=== PATIENT | female | born 1950 | race Caucasian/White ===

== ENCOUNTER 2017-08-17 13:24 | Observation (INO) | payer MEDICARE ==
[~2017-08-17] VITALS: Ht 167.6 cm; Wt 83.7 kg
[~2017-08-17 13:24] MED LIST: AMLO5TAB2 PO; CARV6.25 PO; ERGO500014 PO; FLUO40CA49 PO; HYDR12.530 PO; LISI40TA4 PO; METF500T6 PO; NITR0.4T SL; OMEP20CA10 PO; PRED20TA3 PO; PREN1TAB80 PO
[2017-08-17 15:09] LABS: BASOPHILS % (AUTO) 0.6 % (0.0-5.0); EOSINOPHILS % (AUTO) 4.7 % (0.0-8.0); LYMPHOCYTES % (AUTO) 32.3 % (21.0-51.0); MEAN CORPUSCULAR HEMOGLOBIN 31.7 pg (27.0-33.0); MEAN CORPUSCULAR VOLUME 93.1 fL (79-99); MONOCYTES % (AUTO) 9.6 % (3.0-13.0); NEUTROPHILS % (AUTO) 52.8 % (40.0-77.0); NUCLEATED RED BLOOD CELLS 0.1 % (0.0-0.19); PLATELET COUNT (AUTO) 164 K/uL (130-400); RED BLOOD CELL COUNT(AUTO) 4.18 MIL/uL (4.00-5.50); RED CELL DISTRIBUTION WIDTH 13.1 % (11.0-15.5); WHITE BLOOD COUNT (AUTO) 6.6 K/uL (4.8-10.8)
[2017-08-17 15:12] LABS: CREATININE 0.8 mg/dL (0.5-1.5); POTASSIUM 3.8 mmol/L (3.5-5.1)
[2017-08-17 15:17] LABS: ALBUMIN 3.4 g/dL (3.5-5.0); BILIRUBIN,TOTAL 0.4 mg/dL (0.2-1.0); TOTAL PROTEIN, SERUM 6.6 g/dL (6.0-8.3)
[2017-08-17] MEDS ORDERED: MECLIZINE HCL 25 MG TABLET ONE (15:34)
[2017-08-17] MEDS ORDERED: SODIUM CHLORIDE 0.9% 1000ML 1,000 ML IV ONE (18:40)
[2017-08-18] MEDS ORDERED: POTASSIUM CHLORIDE 20MEQ/100ML 100 ML IV PRN (01:15)
[2017-08-18] MEDS ORDERED: POTASSIUM CHLORIDE 10% ELIXIR 20 MEQ/15 ML UDCUP PO PRN (01:15)
[2017-08-18] MEDS ORDERED: HYDRALAZINE HCL 20 MG/ML VIAL IV PRN (01:15)
[2017-08-18] MEDS ORDERED: LIDOCAINE HCL-MPF 1% 2ML VIAL IVP PRN (01:15)
[2017-08-18] MEDS ORDERED: ONDANSETRON HCL MDV 20ML 2 MG/ML VIAL IVP PRN (01:15)
[2017-08-18] MEDS ORDERED: POTASSIUM CHLORIDE 20 MEQ ERTAB PO PRN (01:15)
[2017-08-18 06:32] LABS: HEMATOCRIT 38.3 % (36-48); MEAN CORPUSCULAR HEMOGLOBIN 31.8 pg (27.0-33.0); MEAN CORPUSCULAR HGB CONC 34.1 g/dL (32.0-36.0); MEAN CORPUSCULAR VOLUME 93.3 fL (79-99); PLATELET COUNT (AUTO) 165 K/uL (130-400); RED BLOOD CELL COUNT(AUTO) 4.11 MIL/uL (4.00-5.50); RED CELL DISTRIBUTION WIDTH 13.3 % (11.0-15.5); WHITE BLOOD COUNT (AUTO) 6.5 K/uL (4.8-10.8)
[2017-08-18 07:00] LABS: CREATINE KINASE MB 0.8 ng/mL (0.5-3.6); CREATININE 0.8 mg/dL (0.5-1.5); POTASSIUM 3.5 mmol/L (3.5-5.1); THYROID STIMULATING HORMONE 0.43 uIU/mL (0.36-3.74); TROPONIN I 0.06 ng/mL (0.00-0.06)
[2017-08-18] MEDS ORDERED: FAMOTIDINE 20MG TAB 20 MG TAB ONE (08:14)
[2017-08-18] MEDS: FAMOTIDINE 20MG TAB 20 MG TAB PO SCH ×2 (09:00→20:18)
[2017-08-18 15:45] VITALS: BP 149/83
[2017-08-18] MEDS ORDERED: ATOR10TA69 PO (16:05)
[2017-08-18] MEDS ORDERED: LEVO150 PO (16:05)
[2017-08-18] MEDS ORDERED: ASPI-1197 PO (16:05)
[2017-08-18] MEDS: METFORMIN HCL 500 MG TABLET PO SCH (17:13)
[2017-08-18 19:38] VITALS: BP_SYST 148; BP_SYST 149; BP_SYST 150; BP_DIAS 74; BP_DIAS 78
[2017-08-18] MEDS: CARVEDILOL 6.25 MG TABLET PO SCH (20:22)
[2017-08-18 23:51] VITALS: BP 127/58
[2017-08-19 04:06] VITALS: BP 134/64
[2017-08-19] MEDS ORDERED: LEVOTHYROXINE 150 MCG TABLET PO SCH (06:30)
[2017-08-19 08:00] VITALS: BP 175/79
[2017-08-19] MEDS: CARVEDILOL 6.25 MG TABLET PO SCH (09:00)
[2017-08-19] MEDS ORDERED: ATORVASTATIN CALCIUM 10 MG TABLET PO SCH (09:00)
[2017-08-19] MEDS ORDERED: PRENATAL VITAMIN RX TABLET PO SCH (09:00)
[2017-08-19] MEDS ORDERED: LISINOPRIL 40 MG TABLET PO SCH (09:00)
[2017-08-19] MEDS ORDERED: ASPIRIN 81MG TAB.CHEW PO SCH (09:00)
[2017-08-19] MEDS ORDERED: FLUOXETINE HCL 20 MG CAPSULE PO SCH (09:00)
[2017-08-19] MEDS ORDERED: PANTOPRAZOLE SODIUM 40 MG TABLET.DR PO SCH (09:00)
[2017-08-19] MEDS ORDERED: HYDROCHLOROTHIAZIDE 25 MG TABLET PO SCH (09:00)
[2017-08-19] MEDS: METFORMIN HCL 500 MG TABLET PO SCH (09:29)
[2017-08-19] MEDS: FAMOTIDINE 20MG TAB 20 MG TAB PO SCH (09:30)
[2017-08-19] MEDS ORDERED: AMLO2.5T PO (10:37)
[2017-08-19 11:19] VITALS: BP 153/68
[2017-08-19 11:20] VITALS: BP 152/71
[2017-08-19 11:21] VITALS: BP 152/74
== END 2017-08-19 13:00 | disposition home or self-care (01) ==
LOC: EDH 13:24 → EDHIP 17:14 → 4BH 08-18 15:02
PROVIDERS: ADMIT Internal Medicine; ATTEND Internal Medicine
DX: R55 Syncope and collapse (principal); R00.1 Bradycardia, unspecified; E11.9 Type 2 diabetes mellitus without complications; E03.9 Hypothyroidism, unspecified; E78.5 Hyperlipidemia, unspecified; G47.30 Sleep apnea, unspecified; I10 Essential (primary) hypertension; Z98.84 Bariatric surgery status
CPT/HCPCS: 36415 ×2; 70450; 70551; 80048; 80053; 82550; 82553; 82948 ×2; 83874; 84443; 84484 ×2; 85025; 85027; 93005 ×2; 93306; 93880; 97161; 99285; G0378 ×44; G8978; G8979; G8980; G8981; G8982; G8983; J7030

== ENCOUNTER → 2018-01-29 | Outpatient (CLI) | payer MEDICARE ==
[~2018-01-29] MED LIST changes: +AMLO2.5T3 PO; -AMLO5TAB2 PO; +ASPI-1197 PO; +ATOR10TA69 PO; -CARV6.25 PO; -ERGO500014 PO; +LEVO150 PO; +LIDOCAINE/PRILOCAINE CREAM 5GM TUBE TP ONE; +METF-444 PO; -METF500T6 PO; -NITR0.4T SL; -PRED20TA3 PO
[2018-01-29 15:38] VITALS: BP 166/99
== END | disposition home or self-care (01) ==
LOC: WHH 13:45
PROVIDERS: ATTEND Family Medicine
DX: T81.89XA Other complications of procedures, not elsewhere classified, initial encounter (principal); E11.9 Type 2 diabetes mellitus without complications; K21.9 Gastro-esophageal reflux disease without esophagitis; E78.5 Hyperlipidemia, unspecified; F32.9 Major depressive disorder, single episode, unspecified; I10 Essential (primary) hypertension; E03.9 Hypothyroidism, unspecified; G47.30 Sleep apnea, unspecified; Y83.8 Other surgical procedures as the cause of abnormal reaction of the patient, or of later complication, without mention of misadventure at the time of the procedure; Y92.89 Other specified places as the place of occurrence of the external cause
CPT/HCPCS: 11042; 82948; A6213; G0463; J3490

== ENCOUNTER 2018-02-05 13:00 | Outpatient (CLI) | payer MEDICARE ==
[~2018-02-05 13:00] MED LIST changes: -LIDOCAINE/PRILOCAINE CREAM 5GM TUBE TP ONE
[2018-02-05 15:29] VITALS: BP 138/71
== END 2018-02-05 15:36 | disposition home or self-care (01) ==
LOC: WHH 13:00
PROVIDERS: ATTEND Family Medicine
DX: T81.89XD Other complications of procedures, not elsewhere classified, subsequent encounter (principal); E11.9 Type 2 diabetes mellitus without complications; K21.9 Gastro-esophageal reflux disease without esophagitis; E78.5 Hyperlipidemia, unspecified; F32.9 Major depressive disorder, single episode, unspecified; I10 Essential (primary) hypertension; E03.9 Hypothyroidism, unspecified; G47.30 Sleep apnea, unspecified; Y83.8 Other surgical procedures as the cause of abnormal reaction of the patient, or of later complication, without mention of misadventure at the time of the procedure
CPT/HCPCS: G0463

== ENCOUNTER 2019-02-02 22:24 | Emergency (ER) | payer MEDICARE ==
[~2019-02-02 22:24] MED LIST changes: -AMLO2.5T3 PO; +AMLO2.5T4 PO; +OMEP-50 PO; -OMEP20CA10 PO
[2019-02-03] LABS: BASOPHILS % (AUTO) 0.8 % (0.0-5.0); EOSINOPHILS % (AUTO) 6.5 % (0.0-8.0); HEMATOCRIT 40.1 % (36-48); LYMPHOCYTES % (AUTO) 20.4 % (21.0-51.0); MEAN CORPUSCULAR HEMOGLOBIN 30.7 pg (27.0-33.0); MEAN CORPUSCULAR HGB CONC 33.3 g/dL (32.0-36.0); MEAN CORPUSCULAR VOLUME 92.3 fL (79-99); MONOCYTES % (AUTO) 11.1 % (3.0-13.0); NEUTROPHILS % (AUTO) 61.2 % (40.0-77.0); NUCLEATED RED BLOOD CELLS 0.1 % (0.0-0.19); PLATELET COUNT (AUTO) 190 K/uL (130-400); RED BLOOD CELL COUNT(AUTO) 4.35 MIL/uL (4.00-5.50); WHITE BLOOD COUNT (AUTO) 8.9 K/uL (4.8-10.8)
[2019-02-03 00:14] LABS: PARTIAL THROMBOPLASTIN TIME 30.3 SEC (26.3-35.5); PROTHROMBIN TIME 10.5 SEC (9.6-11.6)
[2019-02-03 00:18] LABS: ALBUMIN 3.8 g/dL (3.5-5.0); BILIRUBIN,TOTAL 0.4 mg/dL (0.2-1.0)
[2019-02-03 00:21] LABS: POTASSIUM 2.9 mmol/L (3.5-5.1)
[2019-02-03 00:23] LABS: B-TYPE NATRIURETIC PEPTIDE 31 pg/mL (0-100)
[2019-02-03] MEDS ORDERED: POTASSIUM BICARB/CIT AC 25 MEQ TABLET.EFF ONE (00:48)
== END 2019-02-03 01:25 | disposition home or self-care (01) ==
LOC: EDH 22:24
DX: I10 Essential (primary) hypertension (principal); E87.6 Hypokalemia; E11.9 Type 2 diabetes mellitus without complications; E07.9 Disorder of thyroid, unspecified; Z91.041 Radiographic dye allergy status
CPT/HCPCS: 36415; 71045; 80053; 82550; 83735; 83874; 83880; 84484; 85025; 85610; 85730; 93005

== ENCOUNTER 2024-06-12 18:02 | Observation (INO) | payer MEDICARE ==
[~2024-06-12] VITALS: Ht 167.6 cm; Wt 80.5 kg
[~2024-06-12 18:02] MED LIST changes: -LISI40TA4 PO; +LISI40TA9 PO; -OMEP-50 PO; +OMEP20CA12 PO
--- NOTE | 2024-06-12 18:26 | HMCIMG ---
Exam: NONCONTRAST CT BRAIN REASON: NUMBNESS. COMPARISON: MRI 08/17/2017 TECHNIQUE: Images are obtained from vertex to the skull base. The exam was performed without IV contrast. FINDINGS: There is normal appearing brain parenchyma. There are no focal mass lesions. There is is no evidence of intracranial hemorrhage or acute stroke. Ventricles and sulci appear normal. Posterior fossa and brainstem structures are unremarkable. Paranasal sinuses and remaining extracranial soft tissues appear normal as well. IMPRESSION: 1. Normal noncontrast CT brain. CT was performed with one or more following dose reduction techniques: automated exposure control, adjustment of the mA and kv according to patient's size, or use of a iterative reconstruction technique.
[2024-06-12 19:20] LABS: BASOPHILS # (AUTO) 0.08 K/uL (0.00-0.20); EOSINOPHILS # (AUTO) 0.37 K/uL (0.00-0.70); EOSINOPHILS % (AUTO) 4.5 % (0.0-8.0); HEMATOCRIT 35.7 % (36-48); IMMATURE GRANULOCYTE ABSOLUTE 0.01 K/uL (0-1); LYMPHOCYTES # (AUTO) 3.1 K/uL (1.0-4.8); LYMPHOCYTES % (AUTO) 37.4 % (21.0-51.0); MEAN CORPUSCULAR HEMOGLOBIN 25.7 pg (27.0-33.0); MEAN CORPUSCULAR HGB CONC 30.3 g/dL (32.0-36.0); MEAN CORPUSCULAR VOLUME 84.8 fL (79-99); MONOCYTES # (AUTO) 0.8 K/uL (0.1-1.0); MONOCYTES % (AUTO) 9.4 % (3.0-13.0); NEUTROPHILS # (AUTO) 3.9 K/uL (1.8-7.7); NEUTROPHILS % (AUTO) 47.6 % (40.0-77.0); PLATELET COUNT (AUTO) 266 K/uL (130-400); RED BLOOD CELL COUNT(AUTO) 4.21 MIL/uL (4.00-5.50); RED CELL DISTRIBUTION WIDTH 14.5 % (11.0-15.5); WHITE BLOOD COUNT (AUTO) 8.2 K/uL (4.8-10.8)
[2024-06-12 19:33] LABS: CREATININE 0.7 mg/dL (0.5-1.0); POTASSIUM 3.9 mmol/L (3.5-5.1)
--- NOTE | 2024-06-12 20:03 | NUR ---
TELE NEURO EVALUATING PATIENT
--- NOTE | 2024-06-12 20:12 | CONS ---
CONSULT NOTE: [facility] Note # Demographics Consult Type: General Neurology Patient Location: Emergency Room First Name: ALFREDO Last Name: ERASMO Date of : 1950 Age: 74 Gender: Female Facility: [facility] Time of Initial Page (Central Time): 06/12/2024, 20:02 Time of Return Call (Central Time): 06/12/2024, 20:02 # HPI Chief Complaint: - numbness History: 74yof who p/w L facial pulling and numbness. Been present for several days. Last Known Normal: - I have collected independent history specific to time last normal or last known well. We have collaborated with the provider and at this time, we have the most current timeline with the information that is available. # Scores Time of exam and NIHSS (Central Time): 06/12/2024, 20:04 Level of Consciousness 1a: [0] = Alert; keenly responsive LOC Questions 1b: [0] = Answers both questions correctly LOC Commands 1c: [0] = Performs both tasks correctly Best Gaze 2: [0] = Normal Visual 3: [0] = No visual loss Facial Palsy 4: [0] = Normal symmetrical movements Motor Arm Left 5a: [0] = No drift Motor Arm Right 5b: [0] = No drift Motor Leg Left 6a: [0] = No drift Motor Leg Right 6b: [0] = No drift Limb Ataxia 7: [0] = Absent Sensory 8: [0] = Normal Best Language 9: [0] = No aphasia Dysarthria 10: [0] = Normal Extinction and Inattention 11: [0] = No abnormality NIHSS Total: 0 # Data Head CT: - no bleed - preliminarily reviewed by me, please refer to radiology read for official reading # Assessment Impression: In patients presenting with high risk TIA or minor stroke, treatment for 21 days with dual antiplatelet therapy (aspirin and plavix) begun within 24 hours can be beneficial for early secondary stroke prevention (CHANCE 2013, POINT 2018). # Plan Thrombolytic/Intervention: NOT IV Thrombolysis or IA Intervention candidate Thrombolytic Exclusion: > 4.5 hours Intraarterial Exclusion: - clinical exam not consistent with presence of large vessel occlusion (LVO), can reconsider if LVO found on vascular imaging Labs: - lipid panel - hemoglobin A1c - CBC - basic metabolic panel - urine drug screen - troponin Imaging: (urgency: routine): - MRI Brain without contrast - MR Angiogram Neck with contrast - MR Angiogram Head without contrast Diagnostic Test: - echo with bubble study Therapy/Evaluation: - PT/OT evaluation - speech/swallow consultation Medication: - start statin with goal of LDL < 70 - aspirin 81 mg daily Other: - If patient has any neurological deterioration please call me back immediately - permissive hypertension - telemetry monitoring - LDL < 70 - I have discussed my recommendations with the referring provider - provide smoking cessation resources and counseling to patient Additional Recommendations: - Avoid dehydration and relative hypotension - Risk factor modification, including smoking cessation and alcohol moderation if appropriate - Monitor glucose and correct as needed - If cryptogenic non-lacunar stroke on MRI, obtain outpatient cardiac monitoring for a fib # Logistics Attestation of consult completion: The patient is located at: [facility]. Facility staff participated in the visit. I performed this telemedicine visit from my offsite office utilizing interactive 2 way audio and visual telecommunication technology. Total time spent in telemedicine encounter: I spent 27 minutes reviewing clinical data and/or imaging, obtaining history, examining the patient, communicating with the onsite care team, and in preparation of this report. # Demographics First Name: ALFREDO Last Name: MICKYHUBER Facility: [facility] ZEE EAST MD Jun 12, 2024 20:12
--- NOTE | 2024-06-12 20:53 | EKG ---
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
--- NOTE | 2024-06-12 21:11 | ERN ---
General Chief Complaint: Numbness Stated Complaint: NUMBNESS TO LF SIDE OF FACE Time Seen by MD: 19:11 History of Present Illness Initial Comments 74-year-old female who presents for left lower face heaviness and facial pulling and numbness it has been present for over 48 hours now. No other symptoms. Allergies: Coded Allergies: Iodine and Iodide Containing Produc (Unverified Allergy, Unknown, 02/03/19) iodine (Verified Allergy, Unknown, 06/08/15) Home Meds Active Scripts Amlodipine Besylate (Amlodipine Besylate) 2.5 Mg Tablet, 2.5 MG PO DAILY, #30 TAB Prov:WILL FISCHER MD 08/19/17 Reported Medications Atorvastatin Calcium (Atorvastatin Calcium) 10 Mg Tablet, 10 MG PO DAILY, TAB 08/18/17 Levothyroxine Sodium (Synthroid 150 Mcg Tab) 150 Mcg Tab, 150 MCG PO DAILY, TAB 08/18/17 Aspirin (Aspirin) 81 Mg Tab.chew, 81 MG PO DAILY, TAB.CHEW 08/18/17 Vits W-Ca,Fe,FA(<1Mg) ( Vitamins) 1 Each Tablet, 1 EACH PO DAILY, TAB 06/08/15 Omeprazole (Omeprazole) 20 Mg Capsule.dr, 20 MG PO BID, CAP 06/08/15 Fluoxetine HCl (Fluoxetine HCl) 40 Mg Capsule, 20 MG PO DAILY, CAP 06/08/15 Metformin HCl (Metformin HCl) 500 Mg Tablet, 500 MG PO BID, TAB 06/08/15 Hydrochlorothiazide (Hydrochlorothiazide) 12.5 Mg Capsule, 25 MG PO DAILY, CAP 06/08/15 Lisinopril (Lisinopril) 40 Mg Tablet, 40 MG PO DAILY, TAB 06/08/15 Past Medical History Past Medical History: Diabetes-Type II, High Cholesterol, Hypertension Past Surgical History: Other Surgical History Other: ABD SX, BACK SX ROS Dictation CONSTITUTIONAL: No chills, no fever, no weakness, no diaphoresis, no malaise. HEAD/FACE: No signs of trauma. EENT: No eye pain, no blurred vision, no tearing, no double vision, no ear pain, no ear discharge, no nose pain, no nasal congestion, no throat pain, no throat swelling, no mouth pain. RESPIRATORY: No cough, no orthopnea, no SOB, no stridor, no wheezing. CARDIOVASCULAR: No chest pain, no edema, no palpitations, no syncope. GASTROINTESTINAL/ABDOMINAL: No abdominal pain, no constipation, no diarrhea, no nausea, no vomiting. GENITOURINARY: No abnormal discharge, no dysuria, no frequent urination, no hematuria. No complaints of pain in the genitals. MUSCULOSKELETAL: No back pain, no gout, no joint pain, no joint swelling, no muscle pain, no muscle stiffness, no neck pain. INTEGUMENTARY: No change in color, no change in hair/nails, no dryness, no lesion, no lumps, no rash. NEUROLOGICAL/PSYCH: No anxiety, not depressed, no emotional problem, no headac he, no numbness, no pre-existing deficit, no history of seizures, no tremors, no weakness. HEMATOLOGIC/LYMPHATIC: Not anemic, no history of blood clots, no apparent bleeding, no bruising, glands not swollen. All Systems Negative, Except as Noted. Physical Exam Physical Exam Dictation VITAL SIGNS: Reviewed. GENERAL APPEARANCE: Alert, oriented x3, no acute distress HEAD AND FACE: Non-traumatic. EYES: PERRL, pink conjunctivas, eyelid no trauma, anterior chamber clear. EARS: Pinnas intact and no signs of trauma or erythema. Ear canals clear and no discharge. TMs no erythema. NOSE: No discharge, no bleeding. OROPHARYNX: Mouth normal, teeth no caries, tongue pink. Pharynx clear, no erythema. Tonsils no exudates, no abscesses noted. Mucous membrane moist. NECK: Supple, non-tender, no thyromegaly, no masses, no JVD, no bruits. BREAST: Deferred. CHEST: No tenderness, no crepitus, no paradoxical movement, no retractions. LUNGS: Clear, well-ventilated, symmetric, no rales, no wheezing, no rhonchi, no stridor, good breath sounds bilaterally. HEART: Regular rate, regular rhythm, no murmur, no gallops. VASCULAR: No peripheral edema. ABDOMEN: Soft, positive bowel sounds, nondistended, no guarding, nontender, no rebound, no masses no hepatomegaly, no splenomegaly, no Blanton's sign, no hernias. RECTAL: Deferred. GENITAL: Deferred. NEUROLOGICAL: Normal speech, gross motor function intact, gross sensory function intact. MUSCULOSKELETAL: Neck nontender, full range of motion, back nontender, full range of motion. EXTREMITIES: Nontender, full range of motion. SKIN: Color pink, dry, no turgor, no rash, no lacerations, no abrasions, no contusions. LYMPHATICS: Deferred. Stroke Patient?: Ischemic Is Patient Candidate for t-PA?: No Did the Patient Receive t-PA?: No Contraindication for t-PA?: Medical Contraindication NIH STROKE SCALE: NIH STROKE SCALE Response (Comments) Value Level of Consciousness Alert 0 Ask patient month and their age Answers both correct 0 Command to open eyes, make fist and let go Obeys both correct 0 Best gaze (horizontal eye movement) Normal 0 Visual Field Testing No Visual Field Loss 0 Facial Paresis Normal / Symmetrical 0 Motor Function - Left Arm Normal 0 Motor Function - Right Arm Normal 0 Motor Function - Left Leg Normal 0 Motor Function - Right Leg Normal 0 Limb Ataxia No Ataxia 0 Sensory-pin prick to arms, legs, trunk and face Normal 0 Best Language (describe picture, name items and read) No Aphasia 0 Dysarthria (read several words) Normal Articulation 0 Extinction and Inattention Normal 0 Total 0 Results Laboratory and Microbiology Lab and Micro Result Laboratory Tests Test 06/12/24 19:13 06/12/24 21:17 White Blood Count 8.2 K/uL (4.8-10.8) Red Blood Count 4.21 MIL/uL (4.00-5.50) Hemoglobin 10.8 g/dL (12.0-16.0) L Hematocrit 35.7 % (36-48) L Mean Corpuscular Volume 84.8 fL (79-99) Mean Corpuscular Hemoglobin 25.7 pg (27.0-33.0) L Mean Corpuscular Hemoglobin Concent 30.3 g/dL (32.0-36.0) L Red Cell Distribution Width 14.5 % (11.0-15.5) Platelet Count 266 K/uL (130-400) Mean Platelet Volume 11.2 fL (7.5-10.5) H Immature Granulocyte % (Auto) 0.1 % (0-1) Neutrophils (%) (Auto) 47.6 % (40.0-77.0) Lymphocytes (%) (Auto) 37.4 % (21.0-51.0) Monocytes (%) (Auto) 9.4 % (3.0-13.0) Eosinophils (%) (Auto) 4.5 % (0.0-8.0) Basophils (%) (Auto) 1.0 % (0.0-5.0) Neutrophils # (Auto) 3.9 K/uL (1.8-7.7) Lymphocytes # (Auto) 3.1 K/uL (1.0-4.8) Monocytes # (Auto) 0.8 K/uL (0.1-1.0) Eosinophils # (Auto) 0.37 K/uL (0.00-0.70) Basophils # (Auto) 0.08 K/uL (0.00-0.20) Absolute Immature Granulocyte (auto 0.01 K/uL (0-1) Nucleated Red Blood Cells 0.0 % (0.0-0.19) Red Blood Cell Morphology ANISO 1+ Sodium Level 144 mmol/L (136-145) Potassium Level 3.9 mmol/L (3.5-5.1) Chloride Level 107 mmol/L (101-111) Carbon Dioxide Level 32 mmol/L (21-32) Blood Urea Nitrogen 12 mg/dL (7-18) Creatinine 0.7 mg/dL (0.5-1.0) Glomerular Filtration Rate Calc 90 mL/min (>90) Random Glucose 102 mg/dL (70-105) Total Calcium 9.8 mg/dL (8.5-10.1) Troponin I High Sensitivity 44 ng/L (4-50) Urine Color COLORLESS (YELLOW) Urine Appearance CLEAR (CLEAR) Urine pH 6.5 (5.0-8.0) Urine Specific [place] 1.008 (1.001-1.031) Urine Protein NEGATIVE mg/dL (NEGATIVE) Urine Glucose (UA) NEGATIVE mg/dL (NEGATIVE) Urine Ketones NEGATIVE mg/dL (NEGATIVE) Urine Occult Blood NEGATIVE (NEGATIVE) Urine Nitrate NEGATIVE (NEGATIVE) Urine Bilirubin NEGATIVE mg/dL (NEGATIVE) Urine Urobilinogen 0.2 mg/dL (0.2-1.0) Urine Leukocyte Esterase 75 Mimi/uL (NEGATIVE) H Urine RBC 0-1 /HPF (0-1) Urine WBC 2-5 /HPF (0-1) H Urine Squamous Epithelial Cells RARE /HPF (0-2) Urine Bacteria RARE /HPF (None Seen) Urine Opiates Screen NEGATIVE (NEGATIVE) Urine Barbiturates Screen NEGATIVE (NEGATIVE) Urine Phencyclidine Screen NEGATIVE (NEGATIVE) Urine Amphetamines Screen NEGATIVE (NEGATIVE) Urine Benzodiazepines Screen NEGATIVE (NEGATIVE) Urine Cocaine Screen NEGATIVE (NEGATIVE) Urine Marijuana (THC) Screen NEGATIVE (NEGATIVE) MDM CC: Left facial heaviness Historian: Patient Comorbidities: Hypertension, diabetes, gastric bypass Limitations by social determinants of health: None Differential diagnosis: Stroke, Valladares's palsy, musculoskeletal disorder, other. Vital signs: Mild hypertension 164/83, otherwise stable, remained stable in the ER Initial NIHSS of 0. Currently asymptomatic. Symptoms have been waxing and waning for 48 hours or so now. Patient was not a candidate for TNK because she was outside of the treatment window greater than 4.5 hours. Very low suspicion for large vessel occlusion due to the normal NIH stroke scale. Labs: No leukocytosis. Normocytic anemia hemoglobin of 10.8 chemistries unremarkable. Troponin is normal. EKG: Sinus rhythm rate of 72 normal axis good R-wave progression intervals are stable no STEMI. Independently interpreted by me. CT head independently interpreted by me: No acute bleeding hemorrhagic stroke. I consulted tele neurology. Recommends a stroke workup. I consulted the hospitalist, recommends admission for stroke workup. Patient given an aspirin here in the ER. ED Course Orders Procedure Category Date Status Time Ct Head/Brain W/O CT 06/12/24 Resulted Contrast 18:06 Cbc With Differential LAB 06/12/24 Complete 18:06 Basic Metabolic Panel LAB 06/12/24 Complete 18:06 Troponin I High LAB 06/12/24 Complete Sensitivity 18:06 12 Lead Ekg Tracing- EKG 06/12/24 Complete Technical 18:06 Urinalysis Profile LAB 06/12/24 Complete 18:06 [place] Prov. Neuro CONPHYSVC 06/12/24 Transmitted Consult 20:03 Aspirin 325mg Tab PHA 06/12/24 Complete (Aspirin 325mg Tab) 21:30 Culture Urine EVELYN 06/12/24 In Process 21:38 Current Medications Medications (Trade) Dose Ordered Sig/Angélica Route PRN Reason Start Time Stop Time Status Last Admin Dose Admin Aspirin (Aspirin 325mg Tab) 325 mg ONCE ONCE PO 06/12/24 21:30 06/12/24 21:31 DC 06/12/24 21:30 Vital Signs Date Time Temp Pulse Resp B/P (MAP) Pulse Ox O2 Delivery O2 Flow Rate FiO2 06/12/24 21:20 71 20 169/85 97 Room Air* 0 21 06/12/24 20:12 98.8 69 18 164/83 96 Room Air* 0 21 06/12/24 18:03 98.1 69 16 160/76 98 Room Air 0 DX & DISP Disposition: Inpatient Departure Impression: Primary Impression: Stroke-like symptom Additional Impression: Hypertension Critical Time: 30 minutes (Critical Care Procedure NoteAuthorized and Performed by: meTotal critical care time: Approximately 36 minutesDue to a high probability of clinically significant, life threatening deterioration, the patient required my highest level of preparedness to intervene emergently and I personally spent this critical care time directly and personally managing the patient. This critical care time included obtaining a history; examining the patient; pulse oximetry; ordering and review of studies; arranging urgent treatment with development of a management plan; evaluation of patient's response to treatment; frequent reassessment; and, discussions with other pr oviders.This critical care time was performed to assess and manage the high probability of imminent, life-threatening deterioration that could result in multi-organ failure. It was exclusive of separately billable procedures and treating other patients and teaching time.Please see MDM section and the rest of the note for further information on patient assessment and treatment.) Condition: Stable Referrals: SHELIA GUEVARA MD (PCP) GLENNA VARELA DO Jun 12, 2024 21:11
[2024-06-12] MEDS: ASPIRIN 325MG TAB PO ONE (21:30)
[2024-06-12 21:31] LABS: APPEARANCE,URINE CLEAR (CLEAR); BILIRUBIN,URINE NEGATIVE (NEGATIVE); COLOR,URINE COLORLESS (YELLOW); GLUCOSE, URINE (UA) NEGATIVE (NEGATIVE); KETONES,URINE NEGATIVE (NEGATIVE); LEUKOCYTE ESTERASE ,URINE 75 Leu/uL (NEGATIVE); NITRATE,URINE NEGATIVE (NEGATIVE); OCCULT BLOOD,URINE NEGATIVE (NEGATIVE); PH,URINE 6.5 (5.0-8.0); PROTEIN,URINE NEGATIVE (NEGATIVE); UROBILINOGEN,URINE 0.2 mg/dL (0.2-1.0)
[2024-06-12 21:38] LABS: ADD UA MICROSCOPIC YES
[2024-06-12 21:41] LABS: BACTERIA,URINE RARE /HPF (None Seen); MUCUS,URINE RARE LPF (None Seen); RBC,URINE 0-1 /HPF (0-1); SQUAMOUS EPITHELIAL CELL,UR RARE /HPF (0-2)
--- NOTE | 2024-06-12 23:43 | HP ---
[facility] Date of Service: Jun 12, 2024 Time of Service: 23:31 PCP : Gigi Mcdonald HISTORY OF PRESENT ILLNESS: This is a 74-year-old female with past medical history of diabetes, hypertension, hypothyroidism, depression and hyperlipidemia who presents to the ED for complaints of left lower face heaviness ,numbness and pulling to left lower face which has been on and off and started 3 days ago however today is occurs more frequent and last episode noted was around 4pm today so she decided to come to the ED for evaluation.Patient states usually it occurs once daily since 3 days ago and today is occurs 3 x and she is more worried and patient denies any other associated symptoms.Patient was evaluated be a tele neurologist while in the ER with an NIHS score of 0 and an impression for a high risk of TIA and patient was given Aspirin 325 mg po in the ER. Seen and examined patient in the ER awake,alert and coherent,appears comfortable.Patient states she is not having the symptoms and last episode was at 4pm she said.Patient moves all extremities .Patient denies any recent dental procedures,visual disturbance,dizziness,headache ,weakness,tingling sensation ,LOC change ,cough,chest pain,palpitation,fever and shortness of breath. Latest vital signs temperature 98.8, heart rate 71, blood pressure 169/85 saturation 97% on room air. Labs hemoglobin 10.8, hematocrit 35.7 platelet count 266. Chemistries normal. CT head result revealed normal noncontrast CT brain. While in the ER patient received aspirin 325 mg p.o. we will admit patient for further medical management. REVIEW OF SYSTEMS CONSTITUTIONAL: Denies fevers, chills, or night sweats. No unintentional weight loss reported. NEUROLOGICAL: Denies headache, amaurosis fugax, motor weakness, sensory deficit, vertigo/spinning sensation, gait abnormalities, or tremors. ENT: No hearing loss, otalgia, otorrhea, rhinitis, rhinorrhea, hoarseness, or sore throat. CARDIOVASCULAR: Denies any exertional angina, dyspnea on exertion, orthopnea, paroxysmal nocturnal dyspnea, palpitations, life-threatening arrhythmias, claudication. PULMONARY: Denies any shortness of breath, cough, phlegm/sputum, hemoptysis, pleuritic chest pain. SLEEP: Denies morning headaches, daytime somnolence or napping. Denies difficulty falling asleep, staying asleep, waking from sleep. Denies knowledge of snoring. GASTROINTESTINAL: Denies any type of dysphagia to either liquids or solids. Denies nausea, vomiting, pyrosis, early satiety, abdominal pain, diarrhea, constipation, or changes in stool consistency or caliber. Denies coffee-ground emesis, hematemesis, hematochezia, or melanotic stools. GENITOURINARY: Denies frequency, urgency, nocturia, hematuria or incontinence (Storage/Irritative symptoms.) Low urinary stream, straining to void, urinary intermittency or hesitancy, splitting of the voiding stream, terminal dribbling. ENDOCRINOLOGIC: Denies polyuria, polydipsia, polyphagia or heat/cold intolerances. HEMATOLOGIC: Denies thrombophilia/previous clots, or coagulopathy/bleeding disorders. ONCOLOGIC: Denies personal history of malignancy. DERMATOLOGIC: Denies rashes or pruritus. PSYCHIATRIC: Denies any suicidal or homicidal ideation. Denies hallucinations. PAST MEDICAL HISTORY: [ diabetes, hypertension, hypothyroidism, depression and hyperlipidemia ] PAST SURGICAL HISTORY: [ Abdominal surgery and back surgery ] PAST SOCIAL HISTORY: [ Patient lives with . Patient denies cigarette smoking and recreational drug use. Admits to drinking six beers per day ] FAMILY HISTORY: [ Hypertension and diabetes ] Coded Allergies: Iodine and Iodide Containing Produc (Unverified Allergy, Unknown, 02/03/19) iodine (Verified Allergy, Unknown, 06/08/15) PHYSICAL EXAM GENERAL APPEARANCE: The patient is awake, alert, and oriented, in no acute cardiopulmonary distress. NEUROLOGICAL: Cranial nerves II-XII grossly intact. Motor is 5/5 in bilateral upper and lower extremities proximal to distal. No sensory deficits. HEENT: Face is symmetric. Pupils are equal and reactive. Extraocular movements are intact. NECK: Supple. No JVD. No thyromegaly. No submental, submandibular, pre-/postauricular, occipital or supraclavicular lymphadenopathy. CHEST: Normal chest expansion. No Telemetry. LUNGS: Absence of any rales, rhonchi or any wheezing. CARDIOVASCULAR: Regular. S1 and S2 normal. No appreciable rubs, murmurs or gallops. ABDOMEN: Soft, nontender, and nondistended. There is no rebound, voluntary guarding, or rigidity. : Deferred. No Mantilla. EXTREMITIES: Non-edematous and not cyanotic. No clubbing. Good capillary refill. SKIN: No skin breakdown. Vital Sign (Last 24 Hours) 06/12/24 06/12/24 20:12 21:20 Temp 98.8 Pulse 71 Resp 20 B/P (MAP) 169/85 Pulse Ox 97 O2 Delivery Room Air* O2 Flow Rate 0 FiO2 21 LABS: Laboratory: Test 06/12/24 21:17 06/12/24 19:13 Range/Units Urine Color COLORLESS YELLOW Urine Appearance CLEAR CLEAR Urine pH 6.5 5.0-8.0 Urine Specific Hiko 1.008 1.001-1.031 Urine Protein NEGATIVE NEGATIVE mg/dL Urine Glucose (UA) NEGATIVE NEGATIVE mg/dL Urine Ketones NEGATIVE NEGATIVE mg/dL Urine Occult Blood NEGATIVE NEGATIVE Urine Nitrate NEGATIVE NEGATIVE Urine Bilirubin NEGATIVE NEGATIVE mg/dL Urine Urobilinogen 0.2 0.2-1.0 mg/dL Urine Leukocyte Esterase 75 H NEGATIVE Mimi/uL Urine RBC 0-1 0-1 /HPF Urine WBC 2-5 H 0-1 /HPF Urine Squamous Epithelial Cells RARE 0-2 /HPF Urine Bacteria RARE None Seen /HPF White Blood Count 8.2 4.8-10.8 K/uL Red Blood Count 4.21 4.00-5.50 MIL/uL Hemoglobin 10.8 L 12.0-16.0 g/dL Hematocrit 35.7 L 36-48 % Mean Corpuscular Volume 84.8 79-99 fL Mean Corpuscular Hemoglobin 25.7 L 27.0-33.0 pg Mean Corpuscular Hemoglobin Concent 30.3 L 32.0-36.0 g/dL Red Cell Distribution Width 14.5 11.0-15.5 % Platelet Count 266 130-400 K/uL Mean Platelet Volume 11.2 H 7.5-10.5 fL Immature Granulocyte % (Auto) 0.1 0-1 % Neutrophils (%) (Auto) 47.6 40.0-77.0 % Lymphocytes (%) (Auto) 37.4 21.0-51.0 % Monocytes (%) (Auto) 9.4 3.0-13.0 % Eosinophils (%) (Auto) 4.5 0.0-8.0 % Basophils (%) (Auto) 1.0 0.0-5.0 % Neutrophils # (Auto) 3.9 1.8-7.7 K/uL Lymphocytes # (Auto) 3.1 1.0-4.8 K/uL Monocytes # (Auto) 0.8 0.1-1.0 K/uL Eosinophils # (Auto) 0.37 0.00-0.70 K/uL Basophils # (Auto) 0.08 0.00-0.20 K/uL Absolute Immature Granulocyte (auto 0.01 0-1 K/uL Nucleated Red Blood Cells 0.0 0.0-0.19 % Red Blood Cell Morphology ANISO 1+ Sodium Level 144 136-145 mmol/L Potassium Level 3.9 3.5-5.1 mmol/L Chloride Level 107 101-111 mmol/L Carbon Dioxide Level 32 21-32 mmol/L Blood Urea Nitrogen 12 7-18 mg/dL Creatinine 0.7 0.5-1.0 mg/dL Glomerular Filtration Rate Calc 90 >90 mL/min Random Glucose 102 70-105 mg/dL Total Calcium 9.8 8.5-10.1 mg/dL Troponin I High Sensitivity 44 4-50 ng/L DIAGNOSTICS / RADIOLOGY: [ ] ASSESSMENT: Suspected transient ischemic attack POA Uncontrolled hypertension POA Alcohol dependence POA Acute anemia POA Hyperlipidemia POA Diabetes POA Hypothyroidism POA Depression POA PLAN: We will admit patient in medical telemetry We will start on clear liquid diet We will start aspirin 81 mg p.o. daily We will start on Famotidine 20 mg p.o. bid for GI prophylaxis We will replace electrolytes as needed per protocol We will start on insulin sliding scale AC & HS with hypoglycemia protocol We will add prn medication for fever,pain,cough ,nausea and vomiting We will reconcile home meds once medlist available We will request PT eval and treat We will request case management service Bedside swallow eval Counseled on alcohol use cessation NIHS Q shift and p.r.n. We will observe permissive hypertension for now Neuro check every 4 hours per nursing Monitor for signs of alcohol withdrawals and notify care provider We will request labs in am We will obtain MRI brain without contrast Further orders to follow depending on above results Case discussed with attending physician and came up with above treatment and plan of care. ADVANCED CARE PLANNING 1. Which of the following were discussed? Hospice Care - No Therapeutic options - Yes Advance Directives - No Other discussions - 2. Discussed with who? Patient and Rajeev Fambo 3. Voluntary nature of this service was explained to the patient? Yes 4. Amount of time spent - __20 5. Reviewed by Physician? (if this service was performed by NPP) Yes Patient seen and examined by me. Agree with note by DIRECTOR OF MATERIALS SEE ADDITIONAL ORDERS PER CHART DISCUSSED WITH NURSING STAFF JUNIOR MORRIS [employer]ODUCTION HAND Jun 12, 2024 23:42
[2024-06-13] MEDS ORDERED: ondanSETRON 4MG INJ IV PRN
[2024-06-13] MEDS ORDERED: PoTASSium chloRIDE 20MEQ/100ML 100 ML IV PRN
[2024-06-13] MEDS ORDERED: GLUCAGON 1MG KIT 1 MG ML IM PRN
[2024-06-13] MEDS ORDERED: MAGNESIUM 2GM PREMIX 50ML 50 ML IV PRN
[2024-06-13] MEDS ORDERED: DEXTROSE 50%-WATER 50 ML DISP.SYRIN IV PRN
[2024-06-13] MEDS ORDERED: acetaMINOPHEN 325 MG TAB PO PRN
[2024-06-13] MEDS ORDERED: PoTASSium chl 10% ELIXIR 20MEQ 20 MEQ/15 ML UDCUP PO PRN
[2024-06-13] MEDS ORDERED: hydrALAZine 20MG/ML VIAL IV PRN
[2024-06-13] MEDS: 0.9%NACL 1000ML 1,000 ML IV SCH (00:10)
[2024-06-13 01:13] LABS: AMPHET/METH SCREEN,URINE NEGATIVE (NEGATIVE); BARBITURATE SCREEN, URINE NEGATIVE (NEGATIVE); BENZODIAZEPINES SCREEN,URINE NEGATIVE (NEGATIVE); CANNABINOID SCREEN,URINE NEGATIVE (NEGATIVE); COCAINE SCREEN,URINE NEGATIVE (NEGATIVE); OPIATE SCREEN,URINE NEGATIVE (NEGATIVE); PHENCYCLIDINE SCREEN,URINE NEGATIVE (NEGATIVE)
[2024-06-13 01:22] LABS: HEMOGLOBIN A1C 6.6 % (4.0-6.0)
--- NOTE | 2024-06-13 01:28 | NUR ---
ASSUMED PATIENT CARE AT THIS TIME FROM AIDAN ADEN./SHAHEED
[2024-06-13 06:36] LABS: BASOPHILS # (AUTO) 0.08 K/uL (0.00-0.20); BASOPHILS % (AUTO) 1.1 % (0.0-5.0); EOSINOPHILS # (AUTO) 0.43 K/uL (0.00-0.70); EOSINOPHILS % (AUTO) 5.7 % (0.0-8.0); HEMATOCRIT 33.6 % (36-48); IMMATURE GRANULOCYTE ABSOLUTE 0.02 K/uL (0-1); LYMPHOCYTES # (AUTO) 2.8 K/uL (1.0-4.8); LYMPHOCYTES % (AUTO) 36.6 % (21.0-51.0); MEAN CORPUSCULAR HEMOGLOBIN 25.6 pg (27.0-33.0); MEAN CORPUSCULAR HGB CONC 30.4 g/dL (32.0-36.0); MEAN CORPUSCULAR VOLUME 84.2 fL (79-99); MONOCYTES # (AUTO) 0.9 K/uL (0.1-1.0); MONOCYTES % (AUTO) 11.4 % (3.0-13.0); NEUTROPHILS # (AUTO) 3.4 K/uL (1.8-7.7); NEUTROPHILS % (AUTO) 44.9 % (40.0-77.0); PLATELET COUNT (AUTO) 239 K/uL (130-400); RED BLOOD CELL COUNT(AUTO) 3.99 MIL/uL (4.00-5.50); RED CELL DISTRIBUTION WIDTH 14.5 % (11.0-15.5); WHITE BLOOD COUNT (AUTO) 7.6 K/uL (4.8-10.8)
[2024-06-13 06:59] LABS: BILIRUBIN,TOTAL 0.4 mg/dL (0.2-1.0); CREATININE 0.6 mg/dL (0.5-1.0); POTASSIUM 3.9 mmol/L (3.5-5.1); THYROID STIMULATING HORMONE 0.03 uIU/mL (0.36-3.74); TOTAL PROTEIN, SERUM 6.1 g/dL (6.0-8.3)
[2024-06-13] MEDS: INSULIN humuLIN R 100 UNIT/ML 3ML SQ SCH (07:30)
--- NOTE | 2024-06-13 07:56 | NUR ---
TROP-56 JOVAN ADEN MADE AWARE
--- NOTE | 2024-06-13 09:09 | HMCIMG ---
MR BRAIN WO CON HISTORY: TIA COMPARISON: None TECHNIQUE: MRI of the brain was performed utilizing multiple pulse sequences in axial, coronal and sagittal planes. Patient was not given contrast through intravenous route. FINDINGS: The ventricles and extraventricular CSF spaces are dilated consistent with cerebral atrophy. Nonspecific white matter changes are seen. There is no midline shift, mass effect or herniation. No subacute hemorrhage is seen. No MR evidence of acute infarct is seen in the diffusion weighted images. Cerebellar tonsils are in normal position. No evidence of mucoperiosteal thickening is seen of the visualized paranasal sinuses. No MR evidence of a mass lesion is seen in this noncontrast study. IMPRESSION: 1. No MR evidence of acute infarct is seen in the diffusion weighted images. Atrophy or white matter changes.
[2024-06-13] MEDS: ASPIRIN 81 MG EC TAB PO SCH (11:09)
[2024-06-13] MEDS: FAMOTIDINE 20MG TAB PO SCH (11:09)
--- NOTE | 2024-06-13 15:04 | HMCIMG ---
US CAROTID DUPLEX HISTORY: TIA COMPARISON: None TECHNIQUE: Duplex carotid arterial Doppler ultrasound study was performed. FINDINGS: The common, internal and external carotid arteries are visualized. The peak systolic velocities of right common carotid artery is 56 centimeters per second, right internal carotid artery is 124 centimeters per second, right external carotid artery is 68 centimeters per second, and right vertebral artery is 62 centimeters per second. Right internal carotid artery to right common carotid artery ratio is 2.2. Right vertebral artery is seen with antegrade flow. The peak systolic velocities of left common carotid artery is 71 centimeters per second, left internal carotid artery is 96 centimeters per second, left external carotid artery is 72 centimeters per second, and left vertebral artery is 61 centimeters per second. Left internal carotid artery to left common carotid artery ratio is 1.4. Left vertebral artery is seen with antegrade flow. There are bilateral echogenic plaques. IMPRESSION: 1. No hemodynamically significant lesion is seen of either extracranial carotid artery system.
--- NOTE | 2024-06-13 15:33 | PN ---
[facility] PROGRESS NOTE Date of Service: Jun 13, 2024 Time of Service: 11:00 SUBJECTIVE: The patient is a 74-year-old female with a medical history that includes type 2 diabetes mellitus, hypertension, hypothyroidism, and hyperlipidemia. She presented to the emergency department on June 12, 2024, with complaints of left lower facial heaviness, numbness, and a pulling sensation around her chin, which have been occurring intermittently over the past three days. Initially, she experienced these symptoms once a day for the first two days, but yesterday, the sensations occurred three times, prompting her visit to the emergency department for further evaluation. A Teleneuro consultation was conducted, and as the NIHSS score was 0, she was administered aspirin 325 mg for a possible transient ischemic attack (TIA). Upon presentation, her blood pressure was 169/85, with otherwise unremarkable find ings. Notable laboratory results included a hemoglobin level of 10.8, a TSH level of 0.03, negative toxicology results, serum alcohol levels below 3, and a small amount of leukocyte esterase. A CT scan of the head without contrast was negative, while a brain MRI showed atrophy but no acute infarct. The patient will require further evaluation for a possible TIA. 06/13/2024: The patient was examined in the emergency department 1 with her present at bedside. She did not report any complaints or concerns at that time, and her vital signs appeared stable. Neurological examinations, including cranial nerve assessments and muscle strength evaluations, returned negative results. Her concerned of her having stroke or TIA and wanted her to check out at the hospital. She also mentioned having macular degeneration affecting her left eye, which has caused some vision difficulties, and noted that similar issues are developing in her right eye. She is receiving injections from an upper stitcher but denies current symptoms has relevancy with vision- related symptoms. Carotid Doppler studies and an echocardiogram with a bubble study are pending. Additionally, bedside speech evaluation and physical therapy assessments are also pending. Further assessment and a management plan as discussed below. REVIEW OF SYSTEMS CONSTITUTIONAL: Denies fevers, chills, or night sweats. No unintentional weight loss reported. NEUROLOGICAL: Denies headache, amaurosis fugax, motor weakness, sensory deficit, vertigo/spinning sensation, gait abnormalities, or tremors. ENT: No hearing loss, otalgia, otorrhea, rhinitis, rhinorrhea, hoarseness, or sore throat. CARDIOVASCULAR: Denies any exertional angina, dyspnea on exertion, orthopnea, paroxysmal nocturnal dyspnea, palpitations, life-threatening arrhythmias, claudication. PULMONARY: Denies any shortness of breath, cough, phlegm/sputum, hemoptysis, pleuritic chest pain. SLEEP: Denies morning headaches, daytime somnolence or napping. Denies difficulty falling asleep, staying asleep, waking from sleep. Denies knowledge of snoring. GASTROINTESTINAL: Denies any type of dysphagia to either liquids or solids. Denies nausea, vomiting, pyrosis, early satiety, abdominal pain, diarrhea, constipation, or changes in stool consistency or caliber. Denies coffee-ground emesis, hematemesis, hematochezia, or melanotic stools. GENITOURINARY: Denies frequency, urgency, nocturia, hematuria or incontinence (Storage/Irritative symptoms.) Low urinary stream, straining to void, urinary intermittency or hesitancy, splitting of the voiding stream, terminal dribbling. ENDOCRINOLOGIC: Denies polyuria, polydipsia, polyphagia or heat/cold intolerances. HEMATOLOGIC: Denies thrombophilia/previous clots, or coagulopathy/bleeding disorders. ONCOLOGIC: Denies personal history of malignancy. DERMATOLOGIC: Denies rashes or pruritus. PSYCHIATRIC: Denies any suicidal or homicidal ideation. Denies hallucinations. PHYSICAL EXAM GENERAL APPEARANCE: The patient is awake, alert, and oriented, in no acute card iopulmonary distress. NEUROLOGICAL: Cranial nerves II-XII grossly intact. Motor is 5/5 in bilateral upper and lower extremities proximal to distal. No sensory deficits. HEENT: Face is symmetric. Pupils are equal and reactive. Extraocular movements are intact. NECK: Supple. No JVD. No thyromegaly. No submental, submandibular, pre- /postauricular, occipital or supraclavicular lymphadenopathy. CHEST: Normal chest expansion. No Telemetry. LUNGS: Absence of any rales, rhonchi or any wheezing. CARDIOVASCULAR: Regular. S1 and S2 normal. No appreciable rubs, murmurs or gallops. ABDOMEN: Soft, nontender, and nondistended. There is no rebound, voluntary guarding, or rigidity. : Deferred. No Mantilla. EXTREMITIES: Non-edematous and not cyanotic. No clubbing. Good capillary refill. SKIN: No skin breakdown. Vital Signs (last 8hr) Date Time Temp Pulse Resp B/P (MAP) Pulse Ox O2 Delivery O2 Flow Rate FiO2 06/13/24 12:03 98.4 66 16 164/69 98 Room Air* 0 21 06/13/24 07:28 98.4 56 16 140/62 98 Room Air* 0 21 LABS: Laboratory: Test 06/13/24 12:21 06/13/24 06:15 06/13/24 00:42 06/12/24 21:17 Range/Units Whole Blood Glucose 102 70-110 MG/DL White Blood Count 7.6 4.8-10.8 K/uL Red Blood Count 3.99 L 4.00-5.50 MIL/uL Hemoglobin 10.2 L 12.0-16.0 g/dL Hematocrit 33.6 L 36-48 % Mean Corpuscular Volume 84.2 79-99 fL Mean Corpuscular Hemoglobin 25.6 L 27.0-33.0 pg Mean Corpuscular Hemoglobin Concent 30.4 L 32.0-36.0 g/dL Red Cell Distribution Width 14.5 11.0-15.5 % Platelet Count 239 130-400 K/uL Mean Platelet Volume 11.1 H 7.5-10.5 fL Immature Granulocyte % (Auto) 0.3 0-1 % Neutrophils (%) (Auto) 44.9 40.0-77.0 % Lymphocytes (%) (Auto) 36.6 21.0-51.0 % Monocytes (%) (Auto) 11.4 3.0-13.0 % Eosinophils (%) (Auto) 5.7 0.0-8.0 % Basophils (%) (Auto) 1.1 0.0-5.0 % Neutrophils # (Auto) 3.4 1.8-7.7 K/uL Lymphocytes # (Auto) 2.8 1.0-4.8 K/uL Monocytes # (Auto) 0.9 0.1-1.0 K/uL Eosinophils # (Auto) 0.43 0.00-0.70 K/uL Basophils # (Auto) 0.08 0.00-0.20 K/uL Absolute Immature Granulocyte (auto 0.02 0-1 K/uL Nucleated Red Blood Cells 0.0 0.0-0.19 % Sodium Level 147 H 136-145 mmol/L Potassium Level 3.9 3.5-5.1 mmol/L Chloride Level 110 101-111 mmol/L Carbon Dioxide Level 31 21-32 mmol/L Blood Urea Nitrogen 10 7-18 mg/dL Creatinine 0.6 0.5-1.0 mg/dL Glomerular Filtration Rate Calc 94 >90 mL/min Random Glucose 106 H 70-105 mg/dL Total Calcium 9.4 8.5-10.1 mg/dL Magnesium Level 2.00 1.80-2.40 mg/dL Total Bilirubin 0.4 0.2-1.0 mg/dL Aspartate Amino Transf (AST/SGOT) 13 10-37 U/L Alanine Aminotransferase (ALT/SGPT) 19 12-78 U/L Alkaline Phosphatase 90 50-136 U/L Troponin I High Sensitivity 54 *H 4-50 ng/L Total Protein 6.1 6.0-8.3 g/dL Albumin 3.0 L 3.5-5.0 g/dL Triglycerides Level 39 30-200 mg/dL Cholesterol Level 135 <200 mg/dL LDL Cholesterol 45 0-99 mg/dL HDL Cholesterol 90 H 35-85 mg/dL Thyroid Stimulating Hormone (TSH) 0.03 #L 0.36-3.74 uIU/mL Erythrocyte Sedimentation Rate 7 0-30 MM/HR Hemoglobin A1c 6.6 H 4.0-6.0 % Estimated Average Glucose (eAG) 143 H 70-126 mg/dL Serum Alcohol < 3 0-10 mg/dL Urine Color COLORLESS YELLOW Urine Appearance CLEAR CLEAR Urine pH 6.5 5.0-8.0 Urine Specific [place] 1.008 1.001-1.031 Urine Protein NEGATIVE NEGATIVE mg/dL Urine Glucose (UA) NEGATIVE NEGATIVE mg/dL Urine Ketones NEGATIVE NEGATIVE mg/dL Urine Occult Blood NEGATIVE NEGATIVE Urine Nitrate NEGATIVE NEGATIVE Urine Bilirubin NEGATIVE NEGATIVE mg/dL Urine Urobilinogen 0.2 0.2-1.0 mg/dL Urine Leukocyte Esterase 75 H NEGATIVE Mimi/uL Urine RBC 0-1 0-1 /HPF Urine WBC 2-5 H 0-1 /HPF Urine Squamous Epithelial Cells RARE 0-2 /HPF Urine Bacteria RARE None Seen /HPF Urine Opiates Screen NEGATIVE NEGATIVE Urine Barbiturates Screen NEGATIVE NEGATIVE Urine Phencyclidine Screen NEGATIVE NEGATIVE Urine Amphetamines Screen NEGATIVE NEGATIVE Urine Benzodiazepines Screen NEGATIVE NEGATIVE Urine Cocaine Screen NEGATIVE NEGATIVE Urine Marijuana (THC) Screen NEGATIVE NEGATIVE Test 06/12/24 19:13 Range/Units Red Blood Cell Morphology ANISO 1+ Current Medications Medications (Trade) Dose Ordered Sig/Angélica Route PRN Reason Start Time Stop Time Status Last Admin Dose Admin Acetaminophen (TYLenol 325MG TAB) 650 mg Q4H PRN PO MILD PAIN (1-3) 06/13/24 00:00 07/13/24 00:00 Acetaminophen (TYLenol 325MG TAB) 650 mg Q6H PRN PO TEMPERATURE GREATER THAN 101.5 06/13/24 00:00 07/13/24 00:00 Aspirin (Aspirin 81mg Ec Tab) 81 mg DAILY PO 06/13/24 09:00 07/13/24 08:59 06/13/24 11:09 81 MG Dextrose (D50w) 50 ml AD PRN IV HYPOGLYCEMIA PROTOCOL 06/13/24 00:00 07/13/24 00:00 Famotidine (Pepcid 20mg Tab) 20 mg BID PO 06/13/24 09:00 07/13/24 08:59 06/13/24 11:09 20 MG Glucagon (Glucagon 1mg Kit) 1 mg AD PRN IM HYPOGLYCEMIA PROTOCOL 06/13/24 00:00 07/13/24 00:00 Hydralazine HCl (APRESOLine 20MG INJ) 10 mg Q6H PRN IV For:SBP above 160;DBP above 90 06/13/24 00:00 07/13/24 00:00 Insulin Human Regular (humuLIN R 100 UNIT/ML 3ML) INSULIN SLIDING SCAL... ACHS SQ 06/13/24 07:30 07/13/24 07:29 Magnesium Sulfate 50 ml @ 0 mls/hr PROTOCOL PRN IV OTHER [SEE ORDER COMMENTS] 06/13/24 00:00 07/13/24 00:00 Ondansetron HCl (zoFRAN 4MG INJ) 4 mg Q6H PRN IV NAUSEA/VOMITING 06/13/24 00:00 07/13/24 00:00 Potassium Chloride 100 ml @ 100 mls/hr AD PRN IV POTASSIUM PROTOCOL 06/13/24 00:00 07/13/24 00:00 Potassium Chloride (K-Dur/Klor-Con 20meq) 20 meq AD PRN PO POTASSIUM PROTOCOL 06/13/24 00:00 07/13/24 00:00 Potassium Chloride (KCl 10% Elixir 20meq/15ml) 20 meq AD PRN PO POTASSIUM PROTOCOL 06/13/24 00:00 07/13/24 00:00 Sodium Chloride 1,000 ml @ 100 mls/hr Q10H IV 06/13/24 00:00 06/13/24 09:47 DC 06/13/24 00:10 100 MLS/HR DIAGNOSTICS / RADIOLOGY: [place] [id number] [place] [address] [id number] IMAGING REPORT Signed PATIENT: ALFREDO ZIMMERMAN MR#: [id number] : 1950 SEX: F AGE: 74 LOCATION: [facility] ORDER 07 STATUS: PRE ER REPORT#: [id number] SERVICE 05 REASON: NUMBNESS ORDERING PHYSICIAN: SERGIO MYLES MD PROCEDURE: HEAD WO - CT HEAD/BRAIN W/O CONTRAST Exam: NONCONTRAST CT BRAIN REASON: NUMBNESS. COMPARISON: MRI 08/17/2017 TECHNIQUE: Images are obtained from vertex to the skull base. The exam was performed without IV contrast. FINDINGS: There is normal appearing brain parenchyma. There are no focal mass lesions. There is is no evidence of intracranial hemorrhage or acute stroke. Ventricles and sulci appear normal. Posterior fossa and brainstem structures are unremarkable. Paranasal sinuses and remaining extracranial soft tissues appear normal as well. IMPRESSION: 1. Normal noncontrast CT brain. CT was performed with one or more following dose reduction techniques: automated exposure control, adjustment of the mA and kv according to patient's size, or use of a iterative reconstruction technique. DICTATED BY: RICKY BERNARD MD DATE: 06/12/241822 ELECTRONICALLY SIGNED BY: RICKY BERNARD MD DATE: 06/12/241825 [facility] [address] [id number] IMAGING REPORT Signed PATIENT: ALFREDO ZIMMERMAN MR#: [id number] : 1950 SEX: F AGE: 74 LOCATION: [facility] ORDER 2341 STATUS: ADM IN REPORT#: [id number] SERVICE 0600 REASON: suspected tia ORDERING PHYSICIAN: JUNIOR MORRIS PROCEDURE: BRAIN WO - MR BRAIN WO CON MR BRAIN WO CON HISTORY: TIA COMPARISON: None TECHNIQUE: MRI of the brain was performed utilizing multiple pulse sequences in axial, coronal and sagittal planes. Patient was not given contrast through intravenous route. FINDINGS: The ventricles and extraventricular CSF spaces are dilated consistent with cerebral atrophy. Nonspecific white matter changes are seen. There is no midline shift, mass effect or herniation. No subacute hemorrhage is seen. No MR evidence of acute infarct is seen in the diffusion weighted images. Cerebellar tonsils are in normal position. No evidence of mucoperiosteal thickening is seen of the visualized paranasal sinuses. No MR evidence of a mass lesion is seen in this noncontrast study. IMPRESSION: 1. No MR evidence of acute infarct is seen in the diffusion weighted images. Atrophy or white matter changes. DICTATED BY: SHELIA BOOKER MD DATE: 06/13/2457 ELECTRONICALLY SIGNED BY: SHELIA BOOKER MD DATE: 06/13/24 0909 ASSESSMENT: Suspected transient ischemic attack POA Uncontrolled hypertension POA Alcohol dependence POA Acute anemia POA Hyperlipidemia POA Diabetes POA Hypothyroidism POA Depression POA PLAN:- The patient will be admitted on the medical surgical floor. Suspected transient ischemic attack POA * Continue with [id number] mg p.o. daily * CT head and MRI brain did not show any acute infarct, making TIA diagnosis less likely * We will observe permissive hypertension for now * Neuro check every 4 hours per nursing * Bilateral carotid Doppler results are pending * Echocardiogram with bubble study pending * Bedside swallow evaluation pending * Physical therapy is pending today We will advance diet based on bedside swallow evaluation. Replace electrolytes per protocol Continue with insulin sliding scale AC & HS with hypoglycemia protocol We will add prn medication for fever,pain,cough ,nausea and vomiting Home medications were reconciled and resumed Counseled on alcohol use cessation NIHS Q shift and p.r.n. AM Labs: CBC, BMP We will closely monitor the patient today. We are currently pending further wo rkup for possible TIA including carotid Doppler, echo, bedside swallow eval and physical therapy. Possible disposition based on the pending results. Further orders per hospitalization course. ATTESTATION BY PHYSICIAN I have seen and examined the patient. I reviewed the documentation, medical decision making, and treatment plan as noted by the resident provider above. I agree with the findings and plan of care. Andrew Diallo MD, MANALI MD Jun 13, 2024 15:33
--- NOTE | 2024-06-13 16:15 | NUR ---
BEDSIDE SWALLOW EVAL COMPLETED. No s/s of aspiration. Recommend regular solids, thin liquids and pills whole with liquids as tolerated. Compensatory strategies: 1. sit upright during oral intake INSTRUCTOR ROBOTICS reviewed results and recommendations with patient and nurse Erica. No family present at time of visit. INSTRUCTOR ROBOTICS educated patient on risks and consequences of aspiration. Speech therapy not warranted at this time. All questions answered. Addendum: 06/13/[address] [facility] JACKSON Amended: Links added.
--- NOTE | 2024-06-13 16:20 | NUR ---
COGNITIVE-LINGUISTIC EVALUATION. Pt PRESENTED WITH MILD DECREASED COGNITIVE ABILITIES AND OCCASIONAL WORD FINDING DEFICITS AT CONVERSATIONAL LEVEL; HOWEVER PER PATIENT, AT BASELINE. EVALUATION: Pt AAOX4. Pt FOLLOWED COMMANDS, ANSWERED YES/NO AND WH QUESTIONS WITH NO DIFFICULTY. Pt REQUESTED WANTS AND NEEDS INDEPENDENTLY AND CARRIED A CONVERSATION WITH CLINICIAN. Pt WITH CLEAR SPEECH INTELLIGIBILITY TO THE UNFAMILIAR LISTENER. Pt DEMONSTRATED MILD DIFFICULTY RECALLING/REPEATING IMMEDIATE INFORMATION HOWEVER ABLE TO COMPLETE TASK ON SECOND TRY. PER PATIENT, SHE HAS BEEN FORGETFUL FOR AWHILE ALREADY AND ALSO HAS NOTICED WORD FINDING DEFICITS. Pt DEMONSTRATED APPROPRIATE AWARENESS FOR VERBAL PROBLEM SOLVING AND SAFETY AWARENESS. NO ACUTE FINDINGS OF CVA/TIA ON MRI AND HEAD CT. ATROPHY REPORTED IN MRI REPORT. RECOMMEND SEEKING NEUROLOGIST OUTPATIENT TO FURTHER EVALUATE ETIOLOGY OF COGNITIVE LINGUISTIC DEFICITS. SPEECH THERAPY NOT WARRANTED AT THIS TIME. ALL QUESTIONS ANSWERED. Addendum: 06/13/[address]EMI JACKSON Amended: Links added.
--- NOTE | 2024-06-13 17:55 | NUR ---
PT REFUSED DINNER ISULIN, STATES SHE HAD A BAD REACTION MAY YEARS AGO WITH INSULIN ONLY TAKES HER METFORMIN.
--- NOTE | 2024-06-13 17:57 | NUR ---
PER SPEECH EVAL/ SANDRA PT PASSED, MAY ADVANCE DIET TOLERATED PER SPEECH RECOMMENDATIONS.
--- NOTE | 2024-06-13 19:28 | NUR ---
TOOK OVER PATIENT AT THIS TIME
[2024-06-13 21:30] VITALS: BP 131/77; PULSE 72; RESP 20; TEMP 98.2; O2SAT 96
--- NOTE | 2024-06-13 21:30 | NUR ---
ADMISSION: PT RECEIVED FROM ER VIA STRETCHER, NO FAMILY AT BEDSIDE. PT STATES FOR THE PAST DAYS SHE FELT HER LEFT SIDE OF THE FACE VERY HEAVY AND DROOPY AND WAS CONCERNED FOR A STROKE. VOICES NO UPPER ARM/LOWER EXTREMITY WEAKNESS/NUMBNESS OR TINGLING. PLACED TELE# 34 TO CHEST WALL, VOICES NO CHEST PAIN/DISCOMFORTS AT THE TIME. NO NEURO DEFICITS NOTED AT THE MOMENT. ORIENTED TO ROOM, SURROUNDINGS AND CALL LIGHT. ENCOURAGED TO USE CALL LIGHT FOR ASSISTANCE, CALL GROVE WITHIN REACH.
[2024-06-13] MEDS: acetaMINOPHEN 325 MG TAB PO PRN (21:57)
[2024-06-14 00:08] VITALS: BP 154/67; PULSE 70; RESP 17; TEMP 97.6
[2024-06-14 04:50] VITALS: BP 143/46; PULSE 72; RESP 18; TEMP 97.9
[2024-06-14] MEDS: levoTHYROxine 150 MCG TABLET PO SCH (05:41)
[2024-06-14 05:47] LABS: BASOPHILS # (AUTO) 0.07 K/uL (0.00-0.20); EOSINOPHILS % (AUTO) 4.4 % (0.0-8.0); HEMATOCRIT 33.3 % (36-48); IMMATURE GRANULOCYTE ABSOLUTE 0.01 K/uL (0-1); LYMPHOCYTES # (AUTO) 2.2 K/uL (1.0-4.8); LYMPHOCYTES % (AUTO) 32.1 % (21.0-51.0); MEAN CORPUSCULAR HEMOGLOBIN 25.3 pg (27.0-33.0); MEAN CORPUSCULAR HGB CONC 29.7 g/dL (32.0-36.0); MEAN CORPUSCULAR VOLUME 85.2 fL (79-99); MONOCYTES # (AUTO) 0.7 K/uL (0.1-1.0); MONOCYTES % (AUTO) 9.5 % (3.0-13.0); NEUTROPHILS # (AUTO) 3.6 K/uL (1.8-7.7); NEUTROPHILS % (AUTO) 52.9 % (40.0-77.0); PLATELET COUNT (AUTO) 241 K/uL (130-400); RED BLOOD CELL COUNT(AUTO) 3.91 MIL/uL (4.00-5.50); RED CELL DISTRIBUTION WIDTH 14.6 % (11.0-15.5); WHITE BLOOD COUNT (AUTO) 6.8 K/uL (4.8-10.8)
[2024-06-14 05:57] LABS: CREATININE 0.6 mg/dL (0.5-1.0); POTASSIUM 3.7 mmol/L (3.5-5.1)
[2024-06-14] MEDS: PoTASSium chloRIDE 20MEQ ER 20 MEQ ERTAB PO PRN (06:07)
[2024-06-14 08:00] VITALS: BP 139/79; PULSE 71; RESP 19; TEMP 97.8
[2024-06-14 08:30] VITALS: O2SAT 98
[2024-06-14] MEDS: hydroCHLOROthiazide 25 MG TABLET PO SCH (09:28)
[2024-06-14] MEDS: amLODIPine 2.5 MG TAB PO SCH (09:28)
[2024-06-14] MEDS: LISINOPRIL 40 MG TABLET PO SCH (09:28)
[2024-06-14] MEDS: FLUoxetine HCL 20 MG CAPSULE PO SCH (09:28)
[2024-06-14] MEDS: atorVAStatin 10 MG TABLET PO SCH (09:28)
--- NOTE | 2024-06-14 11:30 | NUR ---
Blood glucose 149. No insulin coverage needed at this time.
[2024-06-14 11:32] VITALS: BP 127/59; PULSE 63; RESP 19; TEMP 97.6
--- NOTE | 2024-06-14 13:39 | NUR ---
ASSESSMENT NOT WORKING
[2024-06-14 16:24] VITALS: BP 147/87; PULSE 62; RESP 19; TEMP 98
--- NOTE | 2024-06-14 16:40 | DS ---
Discharge Summary Hospital Course Summary: The patient is a 74-year-old female with a medical history that includes type 2 diabetes mellitus, hypertension, hypothyroidism, hyperlipidemia presented to the emergency department on June 12, 2024, with the complaints of left lower facial heaviness, numbness, and a pulling sensation around her chin. These symptoms had been occurring intermittently over the past three days. Initially, she experienced these sensations once a day for the first two days, but on the day before her visit, the symptoms occurred three times, prompting her to seek further evaluation. The patient has a history of macular degeneration on the left eye and notices floaters at times and has been receiving injections from flue blower. A Teleneuro consultation was conducted, and since her NIHSS score was 0, she was administered 325 mg of aspirin for a possible transient ischemic attack. Upon presentation, her blood pressure was recorded at 169/85, with other findings remaining unremarkable. Notable laboratory results included a hemoglobin level of 10.8 and a TSH level of 0.03. Toxicology results were negative, serum alcohol levels were below 3, and a small amount of leukocyte esterase was noted. A CT scan of the head without contrast revealed no abnormalities, while a brain MRI showed atrophy but no acute infarct. During her observation status, she was closely monitored for vital signs and underwent neurological examinations, including cranial nerve assessments and muscle strength evaluations every 4 hours, which did not reveal any abnormalities. A bedside swallow evaluation was performed and was negative, showing no signs of aspiration. The following day, the patient was ambulating independently and did not require a physical therapy assessment. Carotid Doppler studies returned negative results, Echocardiogram showed 60-65% with normal segmental wall motion. The stroke workup was negative, and the patient remained hemodynamically stable, reporting significant improvement and complete resolution of symptoms upon admission. The patient's symptoms could be related to migraine, TIA or trigeminal neuralgia. Also, the patient did mention of difficulty remembering and finding words so she may have underlying aphasia which will require follow up with the neurologist as an outpatient. She is medically stable for discharge and can follow up with PCP as an outpatient. Procedure(s): [address] [id number] IMAGING REPORT Signed PATIENT: ALFREDO ZIMMERMAN MR#: [id number] : 1950 SEX: F AGE: 74 LOCATION: [facility] ORDER 07 STATUS: PRE ER REPORT#: [id number] SERVICE 05 REASON: NUMBNESS ORDERING PHYSICIAN: SERGIO MYLES MD PROCEDURE: HEAD WO - CT HEAD/BRAIN W/O CONTRAST Exam: NONCONTRAST CT BRAIN REASON: NUMBNESS. COMPARISON: MRI 08/17/2017 TECHNIQUE: Images are obtained from vertex to the skull base. The exam was performed without IV contrast. FINDINGS: There is normal appearing brain parenchyma. There are no focal mass lesions. There is is no evidence of intracranial hemorrhage or acute stroke. Ventricles and sulci appear normal. Posterior fossa and brainstem structures are unremarkable. Paranasal sinuses and remaining extracranial soft tissues appear normal as well. IMPRESSION: 1. Normal noncontrast CT brain. CT was performed with one or more following dose reduction techniques: automated exposure control, adjustment of the mA and kv according to patient's size, or use of a iterative reconstruction technique. DICTATED BY: RICKY BERNARD MD DATE: 06/12/241822 ELECTRONICALLY SIGNED BY: RICKY BERNARD MD DATE: 06/12/241825 [place] [address] IMAGING REPORT Signed PATIENT: ALFREDO ZIMMERMAN MR#: [id number] : 1950 SEX: F AGE: 74 [facility] STATUS: ADM IN REPORT#: [id number] SERVICE 0600 REASON: suspected tia ORDERING PHYSICIAN: JUNIOR MORRIS LANDFILL [employer] TECHNICIAN PROCEDURE: BRAIN WO - MR BRAIN WO CON MR BRAIN WO CON HISTORY: TIA COMPARISON: None TECHNIQUE: MRI of the brain was performed utilizing multiple pulse sequences in axial, coronal and sagittal planes. Patient was not given contrast through intravenous route. FINDINGS: The ventricles and extraventricular CSF spaces are dilated consistent with cerebral atrophy. Nonspecific white matter changes are seen. There is no midline shift, mass effect or herniation. No subacute hemorrhage is seen. No MR evidence of acute infarct is seen in the diffusion weighted images. Cerebellar tonsils are in normal position. No evidence of mucoperiosteal thickening is seen of the visualized paranasal sinuses. No MR evidence of a mass lesion is seen in this noncontrast study. IMPRESSION: 1. No MR evidence of acute infarct is seen in the diffusion weighted images. Atrophy or white matter changes. DICTATED BY: SHELIA BOOKER MD DATE: 06/13/24 0857 ELECTRONICALLY SIGNED BY: SHELIA BOOKER MD DATE: 06/13/[address] [facility] [address] [place] [phone] IMAGING REPORT Signed PATIENT: ALFREDO ZIMMERMAN MR#: [id number] : 1950 SEX: F AGE: 74 LOCATION: [facility] ORDER 3 STATUS: ADM IN REPORT#: [id number] SERVICE 0 REASON: Possible TIA ORDERING PHYSICIAN: TYSON SERNA MD PROCEDURE: CAROTID - US CAROTID DUPLEX US CAROTID DUPLEX HISTORY: TIA COMPARISON: None TECHNIQUE: Duplex carotid arterial Doppler ultrasound study was performed. FINDINGS: The common, internal and external carotid arteries are visualized. The peak systolic velocities of right common carotid artery is 56 centimeters per second, right internal carotid artery is 124 centimeters per second, right external carotid artery is 68 centimeters per second, and right vertebral artery is 62 centimeters per second. Right internal carotid artery to right common carotid artery ratio is 2.2. Right vertebral artery is seen with antegrade flow. The peak systolic velocities of left common carotid artery is 71 centimeters per second, left internal carotid artery is 96 centimeters per second, left external carotid artery is 72 centimeters per second, and left vertebral artery is 61 centimeters per second. Left internal carotid artery to left common carotid artery ratio is 1.4. Left vertebral artery is seen with antegrade flow. There are bilateral echogenic plaques. IMPRESSION: 1. No hemodynamically significant lesion is seen of either extracranial carotid artery system. DICTATED BY: SHELIA BOOKER MD DATE: 06/13/24 1501 ELECTRONICALLY SIGNED BY: SHELIA BOOKER MD DATE: 06/13/[address] [facility] [address] [place] [phone] IMAGING REPORT Signed PATIENT: ALFREDO ZIMMERMAN MR#: [id number] : 1950 SEX: F AGE: 74 LOCATION: [facility] ORDER 25 STATUS: ADM IN REPORT#: [id number] SERVICE 142 REASON: Possible TIA ORDERING PHYSICIAN: TYSON SERNA MD PROCEDURE: ECHO CMP - ECHO 2-D COMPLETE APPROVED REPORT EXAM: Two-dimensional and M-mode echocardiogram with Doppler and color Doppler. INDICATION ICD: possible TIA Contrast Details Indication: Rule out PFO Agent/Amount Used: Agitated Saline 2D Dimensions RVDd 3.4 cm LVEF(%) 69.3 (>50%) LVED Vol(simp.) 108.0 mL IVSd 1.1 (0.7-1.1cm) FS(%) 39 % LVES Vol(simp.) 36.9 mL LVDd 3.9 (3.8-5.6cm) LA (2D) 3.6 (1.6-4.0cm) LVEF(%, simp.) 66 % PWd 1.2 (0.7-1.1cm) Ao Root(2D) 2.5 (2.0-3.7cm) LA ESV INDEX (4CH) 24.70 mL/m2 IVSs 1.5 cm LVOT diam 1.9 (1.8-2.4cm) LA ESV INDEX (2CH) 32.60 mL/m2 LVDs 2.4 (2.5-4.0cm) LA ESV INDEX (BP) 27.30 mL/m2 PWs 1.6 cm M-Mode Dimensions EPSS 0.6 cm LA (MM) 3.5 (1.6-4.0cm) Ao Root(MM) 2.7 (2.0-3.7cm) Aortic Valve AoV VTI 0.4 m Ao Mean GR 6.0 mmHg LVOT VTI 0.30 m DAVON (VMAX) 2.1 cm2 DAVON (VTI) 2.1 cm2 Mitral Valve MV E Vmax 84.9 cm/s DECEL Time 239 ms MV A Vmax 100.9 cm/s P 1/2 T 77 ms E/A ratio 0.8 MVA (PHT) 2.9 cm2 MR Max PG 28 mmHg TDI E/E' Medial 15.4 E/E' Lateral 12.1 Medial E' Peak V 5.50 cm/s Lateral E' Peak V 7.00 cm/s Tricuspid Valve TR Vmax 2.1 m/s TR Peak GR 17.0 mmHg Left Ventricle The left ventricle is normal size. There is normal LV segmental wall motion. There is normal left ventricular wall thickness. LVEF is 60-65%. Indeterminate diastolic dysfunction. Right Ventricle The right ventricle is normal size. The right ventricular systolic function is normal. Atria The left atrium size is normal. No evidence of PFO/ASD by agitated saline. The right atrium is borderline dilated. Aortic Valve The aortic valve is normal in structure. No aortic regurgitation is present. There is no aortic valvular stenosis. Mitral Valve The mitral valve is normal in structure. Mitral regurgitation is trace. There is no mitral valve stenosis. Tricuspid Valve The tricuspid valve is normal in structure. There is no tricuspid valve regurgitation noted. Pulmonic Valve The pulmonary valve is normal in structure. There is no pulmonic valvular regurgitation. Great Vessels The aortic root is normal in size. IVC is dilated and collapses >50% with inspiration. Pericardium There is no pericardial effusion. Conclusion LVEF is 60-65%. There is normal LV segmental wall motion. There is normal left ventricular wall thickness. The aortic root is normal in size. There is no pericardial effusion. DICTATED BY: BUDDY SONG MD DATE: 06/14/24 0735 ELECTRONICALLY SIGNED BY: BUDDY SONG MD DATE: 06/14/24 8481 Assessment/Plan: ASSESSMENT: Suspected transient ischemic attack POA Uncontrolled hypertension POA Alcohol dependence POA Acute anemia POA Hyperlipidemia POA Diabetes POA Hypothyroidism POA Depression POA Left eye macular degeneration, POA Possible Aphasia, requires outpatient neurology workup Admission Date: 06/12/2024 Discharge Date: 06/14/2024 Condition: Stable Disposition: Home Radiology Investigations: Please find the attached. Home medications: Continued Discharge medications: None Follow up appointment: Follow up with the neurologist within 2 weeks of the discharge for further evaluation of possible aphasia. Follow up with the primary care provider within 7 days of the discharge. We reinforced the importance of medication compliance and follow-up appointments. Discharge Instructions: Continue taking home medications. Visit the nearest emergency department or call 911 if you experience numbness, facial weakness, chest pain or any other life-threatening symptoms Home Medications: Active Scripts Amlodipine Besylate (Amlodipine Besylate) 2.5 Mg Tablet, 2.5 MG PO DAILY, #30 TAB Prov:WILL FISCHER MD 08/19/17 Reported Medications Atorvastatin Calcium (Atorvastatin Calcium) 10 Mg Tablet, 10 MG PO DAILY, TAB 08/18/17 Levothyroxine Sodium (Synthroid 150 Mcg Tab) 150 Mcg Tab, 150 MCG PO DAILY, TAB 08/18/17 Aspirin (Aspirin) 81 Mg Tab.chew, 81 MG PO DAILY, TAB.CHEW 08/18/17 Vits W-Ca,Fe,FA(<1Mg) ( Vitamins) 1 Each Tablet, 1 EACH PO DAILY, TAB 06/08/15 Omeprazole (Omeprazole) 20 Mg Capsule.dr, 20 MG PO BID, CAP 06/08/15 Fluoxetine HCl (Fluoxetine HCl) 40 Mg Capsule, 20 MG PO DAILY, CAP 06/08/15 Metformin HCl (Metformin HCl) 500 Mg Tablet, 500 MG PO BID, TAB 06/08/15 Hydrochlorothiazide (Hydrochlorothiazide) 12.5 Mg Capsule, 25 MG PO DAILY, CAP 06/08/15 Lisinopril (Lisinopril) 40 Mg Tablet, 40 MG PO DAILY, TAB 06/08/15 Continued Medications: Amlodipine Besylate (Amlodipine Besylate) 2.5 Mg Tablet 2.5 MG PO DAILY, #30 TAB Aspirin (Aspirin) 81 Mg Tab.chew 81 MG PO DAILY, TAB.CHEW Atorvastatin Calcium (Atorvastatin Calcium) 10 Mg Tablet 10 MG PO DAILY, TAB Fluoxetine HCl (Fluoxetine HCl) 40 Mg Capsule 20 MG PO DAILY, CAP Hydrochlorothiazide (Hydrochlorothiazide) 12.5 Mg Capsule 25 MG PO DAILY, CAP Levothyroxine Sodium (Synthroid 150 Mcg Tab) 150 Mcg Tab 150 MCG PO DAILY, TAB Lisinopril (Lisinopril) 40 Mg Tablet 40 MG PO DAILY, TAB Metformin HCl (Metformin HCl) 500 Mg Tablet 500 MG PO BID, TAB Omeprazole (Omeprazole) 20 Mg Capsule.dr 20 MG PO BID, CAP Vits W-Ca,Fe,FA(<1Mg) ( Vitamins) 1 Each Tablet 1 EACH PO DAILY, TAB Time spent arranging discharge: 31-60 minutes ATTESTATION BY PHYSICIAN I have seen and examined the patient. I reviewed the documentation, medical decision making, and treatment plan as noted by the resident provider above. I agree with the findings and plan of care. Andrew Diallo MD, MANALI MD Jun 14, 2024 16:40
--- NOTE | 2024-06-14 16:57 | NUR ---
DISCHARGE PATIENT HAS BEEN DISCHARGED HOME. PIV REMOVED. PRESSURE GAUZE AND TAPE APPLIED TO SITE. PATIENT AND FAMILY AT BEDSIDE VERBALIZE UNDERSTANDING OF DISCHARGE PAPERWORK. PATIENT PROVIDED WITH NUMBER FOR NEUROLOGIST. PATIENT WHEELED DOWN TO PRIVATE AUTOMOBILE. TELE PACK HAS BEEN REMOVED.
--- NOTE | 2024-06-14 16:57 | HMCSR ---
APPROVED REPORT EXAM: Two-dimensional and M-mode echocardiogram with Doppler and color Doppler. INDICATION ICD: possible TIA Contrast Details Indication: Rule out PFO Agent/Amount Used: Agitated Saline 2D Dimensions RVDd3.4 cmLVEF(%)69.3 (>50%)LVED Vol(simp.)108.0 mL IVSd1.1 (0.7-1.1cm)FS(%)39 %LVES Vol(simp.)36.9 mL LVDd3.9 (3.8-5.6cm)LA (2D)3.6 (1.6-4.0cm)LVEF(%, simp.)66 % PWd1.2 (0.7-1.1cm)Ao Root(2D)2.5 (2.0-3.7cm)LA ESV INDEX (4CH)24.70 mL/m2 IVSs1.5 cmLVOT diam1.9 (1.8-2.4cm)LA ESV INDEX (2CH)32.60 mL/m2 LVDs2.4 (2.5-4.0cm)LA ESV INDEX (BP)27.30 mL/m2 PWs1.6 cm M-Mode Dimensions EPSS0.6 cm LA (MM)3.5 (1.6-4.0cm) Ao Root(MM)2.7 (2.0-3.7cm) Aortic Valve AoV VTI0.4 mAo Mean GR6.0 mmHgLVOT VTI0.30 m DAVON (VMAX)2.1 cm2AVA (VTI) 2.1 cm2 Mitral Valve MV E Vmax84.9 cm/sDECEL Kfob933 ms MV A Dryb913.9 cm/sP 1/2 T77 ms E/A ratio0.8MVA (PHT)2.9 cm2 MR Max PG28 mmHg TDI E/E' Raixua31.4E/E' Evppgha00.1 Medial E' Peak V5.50 cm/sLateral E' Peak V7.00 cm/s Tricuspid Valve TR Vmax2.1 m/s TR Peak GR17.0 mmHg Left Ventricle The left ventricle is normal size. There is normal LV segmental wall motion. There is normal left lidia tricular wall thickness. LVEF is 60-65%. Indeterminate diastolic dysfunction. Right Ventricle The right ventricle is normal size. The right ventricular systolic function is normal. Atria The left atrium size is normal. No evidence of PFO/ASD by agitated saline. The right atrium is border line dilated. Aortic Valve The aortic valve is normal in structure. No aortic regurgitation is present. There is no aortic valvu lar stenosis. Mitral Valve The mitral valve is normal in structure. Mitral regurgitation is trace. There is no mitral valve sten osis. Tricuspid Valve The tricuspid valve is normal in structure. There is no tricuspid valve regurgitation noted. Pulmonic Valve The pulmonary valve is normal in structure. There is no pulmonic valvular regurgitation. Great Vessels The aortic root is normal in size. IVC is dilated and collapses >50% with inspiration. Pericardium There is no pericardial effusion. Conclusion LVEF is 60-65%. There is normal LV segmental wall motion. There is normal left ventricular wall thickness. The aortic root is normal in size. There is no pericardial effusion.
== END 2024-06-14 17:30 | disposition home or self-care (01) ==
LOC: EDH 18:02 → INTOOBSV 23:31 → EDHIP 23:31 → 4BH 06-13 20:51
PROVIDERS: ADMIT Internal Medicine; ATTEND Internal Medicine
DX: I10 Essential (primary) hypertension (principal); F32.A Depression, unspecified; D64.9 Anemia, unspecified; E03.9 Hypothyroidism, unspecified; E11.9 Type 2 diabetes mellitus without complications; E78.00 Pure hypercholesterolemia, unspecified; F10.20 Alcohol dependence, uncomplicated; G51.0 Bell's palsy; R11.2 Nausea with vomiting, unspecified; R27.0 Ataxia, unspecified; R47.1 Dysarthria and anarthria; Z86.73 Personal history of transient ischemic attack (TIA), and cerebral infarction without residual deficits; Z79.899 Other long term (current) drug therapy; Z98.890 Other specified postprocedural states
CPT/HCPCS: 81001; 84484 ×2; 80048 ×2; 80305; 85025 ×3; 87086; 36415 ×3; 70450; 99291; 93005; 83036; 84443; 83735; 80061; 80053; 85651; 82948 ×6; 93880; 70551; 97161; 97116; 92522; 92610; 93306; J1815; G0378 ×26

== ENCOUNTER 2025-02-18 11:05 | Emergency (ER) | payer MEDICARE ==
[~2025-02-18] VITALS: Ht 167.6 cm; Wt 79.4 kg
[~2025-02-18 11:05] MED LIST changes: +LISI40TA15 PO; -LISI40TA9 PO
[2025-02-18 11:07] VITALS: BP 130/62; PULSE 64; RESP 20; TEMP 98.5
[2025-02-18 11:32] LABS: GLUCOSE, URINE (UA) NEGATIVE (NEGATIVE); LEUKOCYTE ESTERASE ,URINE 500 Leu/uL (NEGATIVE); NITRATE,URINE 1+ (NEGATIVE); OCCULT BLOOD,URINE LARGE (NEGATIVE)
[2025-02-18 11:33] LABS: ADD UA MICROSCOPIC YES; APPEARANCE,URINE CLOUDY (CLEAR)
[2025-02-18 11:38] LABS: SQUAMOUS EPITHELIAL CELL,UR RARE /HPF (0-2)
--- NOTE | 2025-02-18 11:47 | ERN ---
General Chief Complaint: Urinary Frequency Stated Complaint: URINARY SYMPTOMS Time Seen by MD: 11:08 Time Seen by Midlevel: 11:08 Source: patient History of Present Illness Initial Comments 75-year-old female presents to the ER for evaluation of dysuria, increased urinary frequency, and slight hematuria that started three days ago. Denies any fever, chills, back pain, or any other symptoms at this time. Allergies: Coded Allergies: Iodine and Iodide Containing Produc (Unverified Allergy, Unknown, 02/03/19) iodine (Verified Allergy, Unknown, 06/08/15) Home Meds Active Scripts Nitrofurantoin/Nitrofuran Mac (Macrobid) 100 Mg Cap, 1 CAP PO BID for 7 Days, #14 CAP 0 Refills Prov:PATRIZIA WOLFE 02/18/25 Amlodipine Besylate (Amlodipine Besylate) 2.5 Mg Tablet, 2.5 MG PO DAILY, #30 TAB Prov:WILL FISCHER MD 08/19/17 Reported Medications Atorvastatin Calcium (Atorvastatin Calcium) 10 Mg Tablet, 10 MG PO DAILY, TAB 08/18/17 Levothyroxine Sodium (Synthroid 150 Mcg Tab) 150 Mcg Tab, 150 MCG PO DAILY, TAB 08/18/17 Aspirin (Aspirin) 81 Mg Tab.chew, 81 MG PO DAILY, TAB.CHEW 08/18/17 Vits W-Ca,Fe,FA(<1Mg) ( Vitamins) 1 Each Tablet, 1 EACH PO DAILY, TAB 06/08/15 Omeprazole (Omeprazole) 20 Mg Capsule.dr, 20 MG PO BID, CAP 06/08/15 Fluoxetine HCl (Fluoxetine HCl) 40 Mg Capsule, 20 MG PO DAILY, CAP 06/08/15 Metformin HCl (Metformin HCl) 500 Mg Tablet, 500 MG PO BID, TAB 06/08/15 Hydrochlorothiazide (Hydrochlorothiazide) 12.5 Mg Capsule, 25 MG PO DAILY, CAP 06/08/15 Lisinopril (Lisinopril) 40 Mg Tablet, 40 MG PO DAILY, TAB 06/08/15 Past Medical History Past Medical History: Diabetes-Type II, High Cholesterol, Hypertension, UTI Past Surgical History: Other Surgical History Other: ABD SX, BACK SX ROS Dictation CONSTITUTIONAL: Negative except for HPI HEAD/FACE: Negative except for HPI EENT: Negative except for HPI RESPIRATORY: Negative except for HPI GASTROINTESTINAL/ABDOMINAL: Negative except for HPI GENITOURINARY: Negative except for HPI MUSCULOSKELETAL: Negative except for HPI INTEGUMENTARY: Negative except for HPI NEUROLOGICAL/PSYCH: Negative except for HPI HEMATOLOGIC/LYMPHATIC: Negative except for HPI All Systems Negative, Except as noted above. 13 point review of systems assessed and all negative except for above. Physical Exam Physical Exam Dictation Vital Signs reviewed General Appearance: Alert, oriented x 3, no acute distress, well developed, nourished. Head and Face: non-traumatic. Eyes: PERRL, pink conjunctivas, eyelid no trauma, anterior chamber with arcus senilis. Ears: Pinnas intact and no signs of trauma or erythema ear canals clear and no discharge TM no erythema Nose: No discharge, no bleeding. Oropharynx: Mouth normal, tongue pink, pharynx clear,no erythema, tonsils no exudates, no abscesses noted, mucous membrane moist Neck: Supple, non-tender, no thyromegaly, no masses, no JVD, no bruits Breast:Deferred Chest:No tenderness, no crepitus, no paradoxical movement, no retractions Lungs:Clear, well-ventilated, symmetric, no rales, no wheezing, no rhonchi, no stridor, good breath sounds bilaterally Heart: Regular rate, regular rhythm, no murmur, no gallops Vascular: no peripheral edema, Abdomen: Soft, positive bowel sounds, nondistended, no guarding, nontender, no rebound, no masses no hepatomegaly, no splenomegaly, no Blanton's sign, no hernias. Rectal: Deferred Genital: Deferred Neurological: Normal speech, motor function intact, sensory function intact Musculoskeletal: Neck nontender, full range of motion, back nontender, full range of motion, Extremities: nontender, full range of motion Skin: Color pink, dry, no turgor, no rash, no lacerations, no abrasions, no contusions. Lymphatic: Deferred Results Laboratory and Microbiology Lab and Micro Result Laboratory Tests Test 02/18/25 11:11 Urine Color YELLOW (YELLOW) Urine Appearance CLOUDY (CLEAR) H Urine pH 5.5 (5.0-8.0) Urine Specific [place] 1.016 (1.001-1.031) Urine Protein 70 mg/dL (NEGATIVE) H Urine Glucose (UA) NEGATIVE mg/dL (NEGATIVE) Urine Ketones NEGATIVE mg/dL (NEGATIVE) Urine Occult Blood LARGE (NEGATIVE) H Urine Nitrate 1+ (NEGATIVE) H Urine Bilirubin NEGATIVE mg/dL (NEGATIVE) Urine Urobilinogen 0.2 mg/dL (0.2-1.0) Urine Leukocyte Esterase 500 Mimi/uL (NEGATIVE) H Urine RBC TNTC /HPF (0-1) H Urine WBC TNTC /HPF (0-1) H Urine Squamous Epithelial Cells RARE /HPF (0-2) Urine Bacteria MOD /HPF (None Seen) Labs Reviewed?: Yes MDM MDM: 75-year-old female presenting with urinary symptoms. Physical examination is unremarkable. Vital signs are stable. Patient is afebrile and nontoxic appearing. Urinalysis consistent with infection. Patient was given1 g of ceftriaxone in the ER and will be discharged home with Macrobid. No signs of pyelonephritis this time. Patient is stable for discharge Differential diagnosis: Urinary tract infection, pyelonephritis, There are no social concerns with this patient. Prescription drug management Prescriptions will include: Macrobid Medical management and examination interpretation discussions were had by me with other qualified healthcare professionals as indicated for the patient's care. ED Course Orders Procedure Category Date Status Time Urinalysis Profile LAB 02/18/25 Complete 11:09 Culture Urine EVLEYN 02/18/25 In Process 11:33 Ceftriaxone 1g Vial PHA 02/18/25 Complete (Rocephine 1g Inj) 12:00 Current Medications Medications (Trade) Dose Ordered Sig/Angélica Route PRN Reason Start Time Stop Time Status Last Admin Dose Admin Ceftriaxone Sodium (ROCEphine 1G INJ) 1 gm ONCE ONCE IM 02/18/25 12:00 02/18/25 12:01 DC 02/18/25 12:01 Vital Signs Date Time Temp Pulse Resp B/P (MAP) Pulse Ox O2 Delivery O2 Flow Rate FiO2 02/18/25 11:07 98.4 64 20 130/62 99 Room Air 0 DX & DISP Disposition: Discharge Departure Impression: Primary Impression: Urinary tract infection Condition: Stable Scripts Nitrofurantoin/Nitrofuran Mac (Macrobid) 100 Mg Cap 1 CAP PO BID for 7 Days, #14 CAP 0 Refills Prov: PATRIZIA WOLFE 02/18/25 Referrals: HOLA STEWART (PCP) Time of Disposition: 12:05 I have reviewed the case, and I agree with, Diagnosis and Plan I performed the substantive portion of the visit. I have reviewed and personally made and approve the management plan that is documented in the note by myself or the ROGER. I acknowledge for responsibility for the patient's management plan. PATRIZIA WOLFE Feb 18, 2025 11:47
[2025-02-18] MEDS ORDERED: MACR100 PO (12:06)
== END 2025-02-18 12:08 | disposition home or self-care (01) ==
LOC: EDH 11:05
DX: N39.0 Urinary tract infection, site not specified (principal); E11.9 Type 2 diabetes mellitus without complications; I10 Essential (primary) hypertension; E78.00 Pure hypercholesterolemia, unspecified; Z79.82 Long term (current) use of aspirin; Z79.84 Long term (current) use of oral hypoglycemic drugs; Z79.890 Hormone replacement therapy; Z79.899 Other long term (current) drug therapy; Z88.8 Allergy status to other drugs, medicaments and biological substances
CPT/HCPCS: 99283; 87086 ×2; 87186; 81001; 96372; J0696